=== PATIENT | male | born 1955 | race African-American/Black ===

== ENCOUNTER 2021-09-30 09:15 | Emergency (ER) | payer OTHER ==
[~2021-09-30 09:15] MED LIST: LOPRESSOR25 MG PO; MEDROL 4MG DOSEP4 MG PO; NORCO 5-325 TA1 EACH PO; VIBRAMYCIN100 MG PO
== END 2021-09-30 11:54 | disposition home or self-care (01) ==
LOC: FER 09:15
DX: S93.492A Sprain of other ligament of left ankle, initial encounter (principal); W01.0XXA Fall on same level from slipping, tripping and stumbling without subsequent striking against object, initial encounter; X50.1XXA Overexertion from prolonged static or awkward postures, initial encounter; Y92.009 Unspecified place in unspecified non-institutional (private) residence as the place of occurrence of the external cause
CPT/HCPCS: 73610